=== PATIENT | male | born 2000 | race African-American/Black ===

== ENCOUNTER → 2024-03-15 13:47 | Emergency (ER) | payer OTHER, SELFPAY ==
[2024-03-15 13:51] VITALS: BP 117/64
--- NOTE | 2024-03-15 17:17 | ED.GENMED ---
History of Present Illness
General
Chief Complaint: Psychiatric Problem
Source: patient and family
Exam Limitations: other (Patient is a limited historian poor eye contact)
Time Seen by Provider: 03/15/24 17:17
Nursing documentation reviewed up to this point in time: agreed with except (Triage note documents the patient does admit to passive thoughts of hurting himself or others however patient denies to me any intention/thoughts of hurting himself or
others)
History of Present Illness
History of Present Illness:
23 yr old male Brought by mother for evaluation . Mom reports for the past 3 days patient is not acting himself he has not eating or sleeping. She does believes however he is drinking water. She reports he intermittently is talking to himself
and screaming. This is a sudden change. She reports no history of psychiatric illness in the past. She does report patient is a senior at [employer] and is currently preparing for presentation and reports he is very stressed.
Patient presents awake alert he tells me he is here because his mom was concerned that he was not eating. He reports he is stressed related to this presentation. He denies any suicidal homicidal thoughts. He denies any auditory or visual
hallucinations.
He denies any recent illness pain fever chills.
Patient denies any drug use. Denies any recent alcohol intake
Review of Systems
Review of Systems
Allergies reviewed?: Yes
Other source history: family
All Other Systems: ROS reviewed and negative except as documented in HPI and ROS
Constitutional: Denies fever
ABD/GI: Reports other (Decreased appetite)
Skin: Reports no symptoms
Psychiatric: Denies suicidal or hallucinations
Phy Exam
General Physical Exam
General Presentation: no apparent distress
General age: appears stated age
General Skin: warm and dry
General Habitus: normal
General Mental: alert and other (pt calm during my exam eating [employer] . limited eye contact )
General Hydration: appears well hydrated
Neurological Exam
Neurological Exam: alert
Musculoskeletal Exam
Musculoskeletal Exam: full ROM
Skin Exam
Skin Exam: normal color and warm/dry
Psychiatric Exam
Psychiatric Exam: other (flat affect )
Course
Orders/Labs/Results
Orders:
Orders
03/15/24 16:32
Crisis Consult Urgent
Reason for Consult: psych eval
03/15/24 18:41
Telemedicine Psychiatry Conslt Urgent
Service Line: Psychiatric
Nursing Station
Ordering Physician: Divine Brito
Referring Physician
Cart Name: French
Clinical Comments: sudden new onset change in behavior talkking to himself not eating no sleep
Psych Consult Reason: Change in Mental Status
Psychiatry Consult Location: ED
Patient Needs to be Seen Emergently: Yes
Patient Admitted for NonPsychiatric Reasons: No
Patient in Restraints: No
Patient Requires a Radio Broadcaster: No
Patient's Legal Status is Involuntary: No
Patient Requires a Guardian: No
03/15/24 19:22
Vital Signs- Treatment ONCE
Frequency: Once
03/15/24 14:15
03/15/24 14:15
Vital Signs
Initial and Last Documented VS:
Initial Vital Signs
Temp Pulse BP Pulse Ox
98.1 F 78 117/64 99
03/15/24 13:51 03/15/24 13:51 03/15/24 13:51 03/15/24 13:51
Last Documented Vital Signs
Temp Pulse BP Pulse Ox
98.1 F 78 117/64 99
03/15/24 13:51 03/15/24 13:51 03/15/24 13:51 03/15/24 13:51
Security Nurse consulted with Physician
Security Nurse consulted with physician?: Yes
Name of Physician Consulted: Isreal
MDM/Problems Addressed
MDM/Problems Addressed:
As documented patient is a 23-year-old male that was brought by mom for evaluation. 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
has been drinking fluids.
Mom reports patient has been talking to self and intermittently screaming. Patient is calm here however very flat affect and limited eye contact during my exam. On my exam patient however is eating, his mom brought him abdominals. Patient refused
blood work however was evaluated by crisis; I did put a telepsych consult on her patient refused to speak with telepsych. Mother does not want to 302 patient she feels that she is comfortable watching him at home and was given outpatient resources
for psychiatry to see as soon as possible this was given to her and reviewed by crisis.
Patient has not had any recent illness he is not and again calm during my exam with no fevers.
With description of behavior is concerning for acute psychosis//other possible etiologies including new onset schizophrenia.
Will hold off on blood work patient stable for discharge home with outpatient psychiatric follow-up. Case reviewed with ED physician
*Critical Care Note
Total Time (30-74mins, 75-104mins- exclusive of procedures): Not Applicable
ED Attending Note
-
Portions of this chart may have been created with voice recognition software.� Occasional wrong word or��sound alike� substitutions may have occurred due to the inherent limitations of voice recognition software.
Discharge Plan
Departure
Patient Disposition: Home (Routine Discharge)
Date of Disposition: 03/15/24
Time of Disposition: 19:22
Patient with high blood pressure during this ER visit?: No
Condition: Fair
Covid-19: Not Applicable
Discharge Problem:
Change in behavior
Stand Alone Forms: Back to School
Activity Restrictions/Additional Instructions:
Follow-up with outpatient psychiatric resources that you were provided. Return however to the ER if any concerning symptoms
Interventions
Interventions:
*Risk Screen - Suicide Last Done: 03/15/24 13:51
*General Assessment Last Done: 03/15/24 14:39
*Neglect/Abuse Screening Last Done: 03/15/24 13:51
*ED COVID-19 Vaccine History Last Done: 03/15/24 14:39
*Nursing Disposition Last Done: 03/15/24 20:03
ED-Psychological Assessment Last Done: 03/15/24 14:37
Discharge Date and Time
Print Language: DOMINICAN
== END | disposition home or self-care (01) ==
LOC: EMR 13:47
PROVIDERS: EMERGENCY PHYSICIAN Emergency Medicine
DX: R41.82 Altered mental status, unspecified (principal)
CPT/HCPCS: 99282

== ENCOUNTER 2024-03-17 04:30 | Emergency (ER) | payer BC, OTHER, SELFPAY ==
[2024-03-17 04:36] VITALS: BP 114/67
--- NOTE | 2024-03-17 06:31 | ED.GENMED ---
Addendum entered and electronically signed by Real Richardson DO 03/17/24 13:21:
Update, patient has been here several hours no dangerous behavior has not required sedation, numerous conversations with nursing patient's mother is under belief that this could not be toxicologic or psychiatric,
Original Note:
History of Present Illness
General
Chief Complaint: Crisis Evaluation
Source: patient, records and family
Exam Limitations: altered mental status
Time Seen by Provider: 03/17/24 06:02
Nursing documentation reviewed up to this point in time: agreed with
History of Present Illness
History of Present Illness:
23-year-old college student accompanied by his mother presents again for evaluation of mental status change, seen here few days ago with similar complaints, thought that it was psychiatric mother did not want to do with her to use discharged home
apparently EMS was called the next day or so, patient was calm and cooperative they left and transported him to the hospital this morning patient apparently ran out of the house, EMS and police were called patient again was calm and cooperative,
mother thinks this is a medical issue not a psychiatric issue no apparent drug or alcohol use no psychiatric history, he is a college student she is concerned that he has not needed for a few days,
Past History
Past History
ED Past Medical History: None
ED Past Surgical History: None
Social History
Tobacco: Non-smoker
Alcohol: None
Drug: None
Personal: Single
Living: with family
Employment: Student
Review of Systems
Review of Systems
All Other Systems: Not applicable
Constitutional: Reports weight loss and sleep disturbance
Phy Exam
Physical Exam
Physical Exam:
Physical Exam
General: 23-year-old female flat affect poor eye contact
Neck: Lips are slightly dry
Heart: s1/s2 regular rate and rhythm, no murmur. equal radial pulses.
Lungs: no acute respiratory distress. clear bilaterally
Abdomen: Soft nontender
Neuro: Moves all extremities knows the year
Skin: no rash
Psychiatric: Withdrawn somewhat suspicious but oriented
Extremities: no edema.
Course
Orders/Labs/Results
Orders:
Orders
03/17/24 04:47
Crisis Consult Urgent
Reason for Consult: pt ran into [employer] and refuses to answer questions
03/17/24 06:17
0.9% Sodium Chloride 1000 ml [Nss] 1,000 ml IV BOLUS
03/17/24 06:18
CT Head W/o Iv Contrast Urgent
Comment:
Reason For Exam: new onset psych
03/17/24 06:52
PSYCHIATRY CONSULT Routine
Consulting Provider: Alexander Marie
Was physician already notified: Yes
03/17/24 07:33
Alcohol Urgent
Complete Blood Count/With Diff Urgent
Comprehensive Metabolic Panel Urgent
TSH Urgent
03/17/24 09:47
Add On- LAB Urgent
Tests Added?: UDS
Abnormal Lab Results
03/17/24
07:33
Absolute Lymphs (auto) 0.7 L 10^3/uL
(1.2-3.4)
Neutrophils % 82.4 H %
(42.2-75.2)
Lymphocytes % 10.9 L %
(20.5-51.1)
BUN 24 H mg/dl
(9-20)
AST 100 H U/L
(17-59)
ALT 51 H U/L
(0-50)
Albumin 5.1 H g/dl
(3.5-5.0)
03/17/24 07:33
03/17/24 07:33
Vital Signs
Initial and Last Documented VS:
Initial Vital Signs
Temp Pulse Resp BP Pulse Ox
96.9 F L 85 16 114/67 99
03/17/24 04:36 03/17/24 04:36 03/17/24 04:36 03/17/24 04:36 03/17/24 04:36
Last Documented Vital Signs
Temp Pulse Resp BP Pulse Ox
96.9 F L 85 16 114/67 99
03/17/24 04:36 03/17/24 04:36 03/17/24 04:36 03/17/24 04:36 03/17/24 04:36
MDM/Problems Addressed
Differential Diagnosis Includes:
Psychiatric toxic metabolic doubt infectious perhaps dehydration conceivably thyroid
MDM/Problems Addressed:
Mental status change not sleeping
*Pulse Oximetry
Patient hypoxic: no
*Critical Care Note
Total Time (30-74mins, 75-104mins- exclusive of procedures): Not Applicable
Data Reviewed
Review of Other/Old Records Reveals: Records
Source: patient, family and previous hospital records
Update Note
Update Note:
Update reviewed labs with mother, UDS is pending CAT scan done reviewed with crisis and psychiatry
ED Attending Note
-
Portions of this chart may have been created with voice recognition software.� Occasional wrong word or��sound alike� substitutions may have occurred due to the inherent limitations of voice recognition software.
Discharge Plan
Departure
Referrals:
NONE,* [Family Provider] -
Interventions
Interventions:
*Risk Screen - Suicide Last Done: 03/17/24 04:36
*General Assessment Last Done: 03/17/24 04:36
*Neglect/Abuse Screening Last Done: 03/17/24 04:36
*ED COVID-19 Vaccine History Last Done: 03/17/24 04:36
ED-Psychological Assessment Last Done: 03/17/24 04:40
Discharge Date and Time
Print Language: GREEK
[2024-03-17] MEDS: NSS 1000 IV ×2 (07:38→13:28)
[2024-03-17 07:42] LABS: % Basophils 0.2 % (0-2); % Immature Granulocytes 0.3 % (0-0.5); % Lymphocytes 10.9 % (20.5-51.1); % Monocytes 6.2 % (1.7-9.3); % Neutrophils 82.4 % (42.2-75.2); Absolute Lymphocytes 0.7 10^3/uL (1.2-3.4); Absolute Monocytes 0.4 10^3/uL (0.1-0.6); Absolute Neutrophils 5.4 10^3/uL (1.4-6.5); Hematocrit 43.8 % (39.0-52.0); Hemoglobin 14.9 g/dL (13.0-18.0); Mean Corpuscular Hgb 30.9 pg (27.0-31.0); Mean Corpuscular Volume 90.9 fL (80.0-94.0); Mean Platelet Volume 9.4 fL (7.4-10.4); Nucleated Red Blood Cells % 0 % (-); Platelet Count 160 10^3/uL (130-400); Red Blood Cell Count 4.82 10^6/uL (4.70-6.10); Red Cell Dist. Width 11.9 % (11.5-14.5); White Blood Cell Count 6.6 10^3/uL (4.8-10.8)
[2024-03-17 07:55] LABS: ALT (SGPT) 51 U/L (0-50); AST (SGOT) 100 U/L (17-59); Albumin 5.1 g/dl (3.5-5.0); Alkaline Phosphatase 47 U/L (38-126); Blood Urea Nitrogen 24 mg/dl (9-20); Calcium 9.4 mg/dl (8.4-10.2); Carbon Dioxide 24 mmol/L (22-30); Chloride 103 mmol/L (98-107); Glucose 81 mg/dl (70-99); Potassium 5.1 mmol/L (3.5-5.1); Sodium 141 mmol/L (135-145); Total Bilirubin 1.1 mg/dl (0.2-1.3); Total Protein 7.5 g/dl (6.3-8.2); eGFR > 60.00
[2024-03-17 07:59] LABS: Alcohol None Detected
[2024-03-17 08:26] LABS: TSH 1.05 uIU/ml (0.47-4.68)
--- NOTE | 2024-03-17 10:19 | W.PN.UPDATE ---
Update Note
Progress Note Update
Approached pt for psychiatric assessment; he sleeping/resting with blanket over his head, not speaking much, making motions that are not clear. Pt eventually answered the ER physician, stated name and was oriented, very soft-spoken. Pt's mother
insists she does not want the pt to have psychiatric care on his record. She insists his condition is due to not sleeping or eating for a few days, and must be a medical condition. ER physician was very supportive, encouraged pt's mother to allow
evaluation, gave her education and updated her on medical work-up, which is negative thus far. Mother is unable to state why pt may not have slept; she denies he uses any substance. Pt noted working on an important project for college, under
pressure, is straight-A student at [employer]. Pt was noted by family to always be somewhat strange in behavior from a young age, possibly on the Autism spectrum. Pt is not agitated or threatening, with no overt hallucinations or
delusions, just not interacting or talking much.
Imp/Rec: discussed with ER physician; need to try to obtain a drug screen.
Pt's behavior could be due to sleep deprivation, stress of college, possibly use of substance to enhance focus; could also be early stage of a psychotic illness
Agree that pt needs sleep and reassessment, as his mother insists. Mother also insists that pt be transferred out of the psychiatric Crisis area/ treated as a primary medical pt. There are no clear grounds for a 302, and this would not help the
issue of mother's resistance to pt receiving psychiatric care.
Will follow and continue to offer support, try to engage pt in treatment.
--- NOTE | 2024-03-17 13:14 | ED.GENMED ---
History of Present Illness
General
Chief Complaint: Crisis Evaluation
Time Seen by Provider: 03/17/24 06:02
Past History
Past History
ED Past Medical History: None
ED Past Surgical History: None
Social History
Tobacco: Non-smoker
Alcohol: None
Drug: None
Personal: Single
Living: with family
Employment: Student
Course
Orders/Labs/Results
Orders:
Orders
03/17/24 04:47
Crisis Consult Urgent
Reason for Consult: pt ran into [employer] and refuses to answer questions
03/17/24 06:17
0.9% Sodium Chloride 1000 ml [Nss] 1,000 ml IV BOLUS
03/17/24 06:18
CT Head W/o Iv Contrast Urgent
Comment:
Reason For Exam: new onset psych
03/17/24 06:52
PSYCHIATRY CONSULT Routine
Consulting Provider: Alexander Marie
Was physician already notified: Yes
03/17/24 07:33
Alcohol Urgent
Complete Blood Count/With Diff Urgent
Comprehensive Metabolic Panel Urgent
TSH Urgent
03/17/24 09:47
Add On- LAB Urgent
Tests Added?: UDS
03/17/24 10:03
Urine Drug Abuse Screen Routine
Abnormal Lab Results
03/17/24
07:33
Absolute Lymphs (auto) 0.7 L 10^3/uL
(1.2-3.4)
Neutrophils % 82.4 H %
(42.2-75.2)
Lymphocytes % 10.9 L %
(20.5-51.1)
BUN 24 H mg/dl
(9-20)
AST 100 H U/L
(17-59)
ALT 51 H U/L
(0-50)
Albumin 5.1 H g/dl
(3.5-5.0)
03/17/24 07:33
03/17/24 07:33
Vital Signs
Initial and Last Documented VS:
Initial Vital Signs
Temp Pulse Resp BP Pulse Ox
96.9 F L 85 16 114/67 99
03/17/24 04:36 03/17/24 04:36 03/17/24 04:36 03/17/24 04:36 03/17/24 04:36
Last Documented Vital Signs
Temp Pulse Resp BP Pulse Ox
96.9 F L 85 16 114/67 99
03/17/24 04:36 03/17/24 04:36 03/17/24 04:36 03/17/24 04:36 03/17/24 04:36
Update Note
Update Note:
1:15 PM update patient is better most of the day seen by crisis seen by psychiatry mother is in denial that this could be psychiatric versus toxicologic patient unable/unwilling to provide a urine drug screen, this point he has been safe for several
hours here, will discharge him to home
ED Attending Note
-
Portions of this chart may have been created with voice recognition software.� Occasional wrong word or��sound alike� substitutions may have occurred due to the inherent limitations of voice recognition software.
Discharge Plan
Departure
Patient Disposition: Home (Routine Discharge)
Date of Disposition: 03/17/24
Time of Disposition: 13:19
Patient with high blood pressure during this ER visit?: No
Condition: Good
Discharge Problem:
Change in behavior
Instructions: Anxiety, Adult (DC)
Referrals:
NONE,* [Family Provider] -
Interventions
Interventions:
*Risk Screen - Suicide Last Done: 03/17/24 04:36
*General Assessment Last Done: 03/17/24 04:36
*Neglect/Abuse Screening Last Done: 03/17/24 04:36
*ED COVID-19 Vaccine History Last Done: 03/17/24 04:36
ED-Psychological Assessment Last Done: 03/17/24 04:40
Discharge Date and Time
Print Language: WOLOF
== END 2024-03-17 15:27 | disposition home or self-care (01) ==
LOC: EMR 04:30
PROVIDERS: CONSULT PHYSICIAN Psychiatry & Neurology Psychiatry; EMERGENCY PHYSICIAN Emergency Medicine
DX: R41.82 Altered mental status, unspecified (principal)
CPT/HCPCS: 96360; 96361; 99284; 70450; 80053; 82077; 84443; 85025

== ENCOUNTER 2025-01-24 16:53 | Emergency (ER) | payer BC, OTHER, SELFPAY ==
[2025-01-24 16:56] VITALS: BP 125/72
--- NOTE | 2025-01-24 17:38 | ED.GENMED ---
History of Present Illness
General
Chief Complaint: Psychiatric Problem
Time Seen by Provider: 01/24/25 17:36
Nursing documentation reviewed up to this point in time: agreed with
History of Present Illness
History of Present Illness:
24-year-old male brought to the ER by mom for evaluation of unusual behavior. Patient is responding to internal stimuli and not answering all questions appropriately. He denies any complaints.
In review of the electronic medical record, he has had multiple prior ER visits for similar symptoms. roundhouse worker was able to speak with mom. Mom has a personal history of schizophrenia. Patient has no known mental illness diagnoses and does
not on any medications
Past History
Past History
ED Past Medical History: None
ED Past Surgical History: None
Social History
Tobacco: Non-smoker
Alcohol: None
Drug: None
Personal: Single
Living: with family
Employment: Student
Phy Exam
Physical Exam
Physical Exam:
Patient is awake, alert, appears in no acute distress, intermittently spitting throughout exam, head is NCAT, PERRL, EOMI mucous membranes moist, conjunctiva pink, heart regular rate and rhythm without murmurs or ectopy, lungs are clear to
auscultation without wheezes rales or rhonchi, no JVD, abdomen is soft and nontender on palpation, extremities without edema, GCS is 14 due to confusion, repeating over and over again the answer to today's date, appears to be responding to internal
stimuli
Course
Orders/Labs/Results
Orders:
Orders
01/24/25 16:55
Crisis Consult Urgent
Reason for Consult: behavior change, pacing
01/24/25 17:37
Drug Screen, Urine [Urine Drug Abuse Screen] Urgent
01/24/25 17:38
Electrocardiogram (*1) Urgent
Reason for Study: Palpitations
EKG- Treatment ONCE
01/24/25 18:00
Acetaminophen Urgent
Comment: ADD ON
Alcohol Urgent
Complete Blood Count/With Diff Urgent
Comprehensive Metabolic Panel Urgent
Salicylate Urgent
Comment: ADD ON
TSH Reflex To Free T4 Urgent
01/24/25 18:34
Add On- LAB Urgent
Tests Added?: Salicylate, acetaminophen, alcohol
01/24/25 20:57
Consult Psychiatry [PSYCHIATRY CONSULT] Urgent
Consulting Provider: Pj Diana
Was physician already notified: Yes
Abnormal Lab Results
01/24/25
18:00
WBC 4.1 L 10^3/uL
(4.8-10.8)
RBC 4.44 L 10^6/uL
(4.70-6.10)
MCHC 32.9 L g/dL
(33.0-37.0)
BUN 27 H mg/dl
(9-20)
ALT 57 H U/L
(0-50)
Salicylates < 1.0 L mg/dl
(2.0-20.0)
Acetaminophen < 10 L ug/ml
(10-30)
01/24/25 18:00
01/24/25 18:00
CBC reassuring, electrolytes within normal limits. Awaiting urine tox screen
Vital Signs
Initial and Last Documented VS:
Initial Vital Signs
Temp Pulse Resp BP Pulse Ox
98.9 F 71 18 125/72 98
01/24/25 16:56 01/24/25 16:56 01/24/25 16:56 01/24/25 16:56 01/24/25 16:56
Last Documented Vital Signs
Temp Pulse Resp BP Pulse Ox
98.9 F 71 18 125/79 97
01/24/25 16:56 01/24/25 19:22 01/24/25 19:22 01/24/25 19:22 01/24/25 19:22
MDM/Problems Addressed
Differential Diagnosis Includes:
Polysubstance use disorder, electrolyte dyscrasia, schizophrenia along with other etiologies considered
*Pulse Oximetry
SaO2: 98
Oxygen Mode of Delivery: Room air
Patient hypoxic: no
*EKG
Interpreted by ED Provider?: Yes (I independently viewed and interpreted twelve-lead EKG showing normal sinus rhythm, rate 65, normal axis, normal intervals, this is a normal tracing, no prior for comparison)
*Bindery Manager Interpretation
Rate: normal (I independently viewed and interpreted rhythm strip showing normal sinus rhythm, no ectopy)
*Critical Care Note
Total Time (30-74mins, 75-104mins- exclusive of procedures): Not Applicable
Update Note
Update Note:
I reviewed patient presentation with mechanical maintenance worker. Patient has presented to this ER with similar symptoms but has never had medical evaluation. Will obtain screening labs with serum and urine drug screens.
2058: Crisis was able to speak with family who are in agreement with psych consultation. Consult placed but will likely happen in the AM. Will continue to observe in ED.
Full pt care transferred to Dr Mosley at end of my shift
ED Attending Note
-
Portions of this chart may have been created with voice recognition software.� Occasional wrong word or��sound alike� substitutions may have occurred due to the inherent limitations of voice recognition software.
Discharge Plan
Departure
Referrals:
UNKNOWN - PT DOES,NOT KNOW [Family Provider]
Interventions
Interventions:
*Risk Screen - Suicide Last Done: 01/24/25 16:56
*General Assessment Last Done: 01/24/25 16:56
*Neglect/Abuse Screening Last Done: 01/24/25 16:56
*ED- Fall Risk Assessment Last Done: 01/24/25 16:56
*ED COVID-19 Vaccine History Last Done: 01/24/25 16:56
*ED Influenza Vaccine History Last Done: 01/24/25 16:56
ED-Psychological Assessment Last Done: 01/24/25 17:21
Discharge Date and Time
Print Language: SINHALA
[2025-01-24 18:24] LABS: Hematocrit 41.3 % (39.0-52.0); Hemoglobin 13.6 g/dL (13.0-18.0); Mean Corp Hgb Conc. 32.9 g/dL (33.0-37.0); Mean Corpuscular Volume 93.0 fL (80.0-94.0); Nucleated Red Blood Cells % 0 % (-); Platelet Count 223 10^3/uL (130-400); Red Cell Dist. Width 12.9 % (11.5-14.5)
[2025-01-24 18:47] LABS: ALT (SGPT) 57 U/L (0-50); AST (SGOT) 38 U/L (17-59); Albumin 4.8 g/dl (3.5-5.0); Alkaline Phosphatase 56 U/L (38-126); Blood Urea Nitrogen 27 mg/dl (9-20); Calcium 9.6 mg/dl (8.4-10.2); Carbon Dioxide 28 mmol/L (22-30); Chloride 102 mmol/L (98-107); Glucose 92 mg/dl (70-99); Potassium 4.3 mmol/L (3.5-5.1); Sodium 139 mmol/L (135-145); Total Protein 8.1 g/dl (6.3-8.2); eGFR > 60.00
[2025-01-24 19:22] VITALS: BP 125/79
[2025-01-24 19:45] LABS: Acetaminophen < 10 ug/ml (10-30); Salicylate < 1.0 mg/dl (2.0-20.0)
[2025-01-25] MEDS: RISPERDAL 1 MG PO (09:55)
--- NOTE | 2025-01-25 09:59 | CS.PSYCHR ---
Consult Summary - Psychiatry
-
pt seen in consultation for bizarre behavior
24 yo man with several month history of increasingly erratic behavior. Had to leave [facility] [facility] due to illness, but prior to March of 2024 was doing well per parents (though not at lot of friends, no dating, but was straight a student.)
In April 07 was seen in [facility] ED for screaming, family attributed it to school stress and did not want psychiatric intervention. Apparently did ok in April and May, but since June has been odd, withdrawn, and unable to function.
Lately has been doing odd behaviors such as spitting every few minutes, inappropriately (does same here, into corner of room) standing up, jumping while twirling fingers, says 'it's necessary' (does same here)
I asked him about what he thinks he needs, says he is fine. Says he is staying at home. Asked about his plans, says 'I want to make money' when asked how 'by being perfect' (repeated.)
There are reports that mother has schizophrenia though she denies this to me, does not sound psychotic on phone (though level of denial of pt's mental illness is quite high.) No other family history.
Pt has had normal development according to family, though they are very christian and restrictive in his social behaviors.
Denies history of drug or alcohol use.
No medical problems.Denies taking any meds, no known allergies
Parents have taken him to other hospitals. two weeks ago to [facility] 'to see if his chemistry is ok' and had reportedly negative drug screen there.
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
Family is very invested in seeing this as a medical illness, but are now willing to support inpatient psychiatric care, They are very reluctant to file a 302 despite my repeated explanations of the need for them to fill out a form or that we would
not be able to hold him against his will.
He has been walking aournd the house at all hours, has been walking to neighbors' houses that do not know him 'trying to be helpful' and going into the garage to carry things into the house. No talk of suicide, no threats, but 'clearly he is not in
his right mind, can't you see that' You cannot just let him go.')
On exam pt it lying in bed, very soft spoken, mumbles some, talking to self, moving thumbs over each finger repeatedly (cannot say why). Every few minutes turns head and spits into corner. Does not answer many questions, mumbles unintellibly. Not
agitated, very internally preoccupied, though does not respond when asked about hallucinations. Able to recount some of his history, talks about being [facility] [employer] student but not currently in school. Says he lives at home.
lab studies again normal
Impression: clearly psychotic, likely schizophrenia due to long course without clear remission, bizarreness, lack of affective component
Will try to get pt to sign 201, to take low dose of risperidone to start. Family would like us to give meds by injection if he will not swallow but I explained that is not possible unless he becomes agitated or a 302 is filed.
[2025-01-25 13:00] VITALS: BP 121/68
== END 2025-01-25 14:04 ==
LOC: EMR 16:53
PROVIDERS: CONSULT PHYSICIAN Psychiatry & Neurology Psychiatry; EMERGENCY PHYSICIAN Emergency Medicine
DX: F29 Unspecified psychosis not due to a substance or known physiological condition (principal); Z81.8 Family history of other mental and behavioral disorders
CPT/HCPCS: 99285; 80053; 80143; 80179; 82077; 84443; 85025; 93005